=== PATIENT | male | born 1955 | race Caucasian/White ===

== ENCOUNTER 2017-02-23 09:23 | Inpatient (IN) | payer BC ==
[2017-02-23] MEDS ORDERED: Ondansetron INJ* 2 MG/ML VIAL IV PRN (12:31)
[2017-02-23] MEDS ORDERED: Morphine INJ* 2 MG/ML 1 ML SYRINGE (TWO MG - NEW SYRINGE VERSION) IV PRN (12:33)
[2017-02-23] MEDS ORDERED: Docusate CAP* 100 MG PO PRN (12:33)
--- NOTE | 2017-02-23 12:39 | HP ---
H&P (Free Text) History and Physical: H&P - Critical Care Reason for admission: pneumonia, hypoxic respiratory failure, transfer from [facility] Limitations in history/physical: none Date of admission: 02/23/2017 HPI: 61y M pmhx of HTN; comes to [facility] 02/18 for complaints of 1 week of chills, 3-4 days of cough, nonproductive, then associated with fever, nausea/vom. no abd pain. no palp/cp. no sick contacts. no diarrhea. Admitted to [facility] 02/18, found to have bilateral mulfifocal infiltrates, started on CAP tx with ceftriaxone and azithromycin, on NC 2L. Noted to have no ANMOL. Febrile+. Over the next few days, tmax 102.8 02/20, increasing hypoxia, req 4L NC , then 6L NC. today 02/23, hypoxic to 80s, fio2 increased to 10lpm form 6lpm. IV abx changed to levaquin. I was called for further management and possible transfer for worsening hypoxia. Advised change of Abx to cefepime/vanco iv. Currently patient in [facility] now, on NC 10lpm, sat 90%, rr18, HR 80-90s, BP 120s Speaks clearly, no distress, states he feels better today. no cp/sob/n/v/abd pain/ headache/palpitations. 1 episode of abd pain 2 days back. Noted history of Hunting trip 1 weeks prior to [place] admission, used insecticide spray on himself. no sick contacts at that time. no rash/tick bits/ joint pains/swellings afterward. ROS: negative except for positives mentioned above. PMHx: Hypertension PSHx: none Family History: Small cell Lung Ca in father, cancer unknown type in mother. Social History: Alcohol-none, Smoking-smoked 30 years 1-3ppd, stopped 15 yrs back, Drug use-no; Job-retired heatlh aid Allergies: NKDA Home Medications: metoprolol 50mg Tele: NSR Vitals: Vital Signs Temp 99.1 F 02/23/17 11:29 Pulse 94 02/23/17 13:15 Resp 22 02/23/17 13:15 BP 129/66 02/23/17 13:15 Pulse Ox 96 10/11/17 13:15 Intake & Output 02/22/17 02/23/17 02/23/17 18:59 06:59 18:59 Weight 173 lb 8.061 oz O2/Vent: 10lpm NC; changing to hiflow NC now. Infusions: heplock Current Medications: Albuterol/Ipratropium (Duoneb (Albuterol 2.5 Mg/Ipratropium 0.5 Mg)) 1 neb INH Q4H PRN PRN Reason: SOB/WHEEZING Docusate Sodium (Colace Cap*) 100 mg PO DAILY PRN PRN Reason: CONSTIPATION Enoxaparin Sodium (Lovenox(*)) 40 mg SUBCUT Q24H [facility] Famotidine (Pepcid Tab*) 20 mg PO BID [facility] Cefepime HCl 1 gm/ Sodium (Chloride) 50 mls @ 100 mls/hr IVPB Q12H [facility] Doxycycline Hyclate 100 mg/ (Sodium Chloride) 250 mls @ 250 mls/hr IVPB Q12H [facility] Metoprolol Tartrate (Lopressor Tab*) 50 mg PO Q12HR [facility] Morphine Sulfate (Morphine Inj (Syringe)*) 2 mg IV Q4H PRN PRN Reason: PAIN - MODERATE Ondansetron HCl (Zofran Inj*) 4 mg IV Q4H PRN PRN Reason: NAUSEA/VOMITING Physical Exam: General: awake, alert, no distress, no diaphoresis Head: normocephalic, atraumatic HEENT: no pallor, no icterus, moist mucous membranes Neck: soft, supple, no jvd, no stridor CVS: normal rate, normal rhythm, no murmur Resp: bilateral air entry, +rhales scattered on left and right, no wheeze, no rhonchi, no acc muscle use Abdomen: soft, nontender, nondistended, bowel sounds present Ext: pulses+, warm, no edema Skin: intact, no breakdown, no dryness Neuro: awake, alert, orientedx3, moving all extremities, no gross focal deficit Labs: pending in lab, to be reviewed; reviewed prior outside labs from today and previous days. Imaging: cxr 02/23 - bilateral multifocal infiltrates consistent with pneumonia, no ptx/ effusion Assessment: 61y M pmhx of HTN; admitted to [facility] 02/18 for chills, cough, nausea, found to have multifocal pneumonia. Developing increasing oxygen requirements over the past few days, transfered to [facility] for respiratory support. -Acute hypoxic respiratory failure, ARDS -Bilateral multilobar pneumonia, suspect CAP -Severe Sepsis Plan: Neuro- stable. delirium prec. CVS- hemodyn stable. BP okay. cont metoprolol. no pressors required at this time. good PO intake. will start mild IVF hydration. IV abx for pneumonia. appears euvolemic otherwise. making urine, quesada in place. Resp- cxr with bilateral infiltrates, unable to review CT with transfer pack, reports reviewed though. Change NC to hiflow NC. titrate fio2 to keep sat>92%. Sputum culture reviewed from [facility], 2+ gram pos cocci present, blood cx neg so far. Will keep IV cefepime (day#1), Vanco (day#1), add doxy for atypical coverage given recent wilderness outing, doxycycline 100mg q12h (day#1). Recent Ceftriaxone/azithro course (~5 days). Repeat Sputum cultures. ID- afebrile. wbc normal ~4. CXR with multifocal infitlrates. Sputum Gram+ cocci +. IV cefepime (day#1), Vanco (day#1), Doxy (day#1). Recent completed Ceftriaxone/Azitrho (5 days). Sputum cx repeat. GI- cardiac diet. Renal- Cr okay, making urine. K okay, no acidosis. No indication for quesada, discontinue quesada. Heme- hg stable, plt stable. noted thrombocytosis on admission, reactive? now to 500k. cont to monitor. Endo- send hga1c and tsh. noted slightly elevated BS before. Insulin as needed if BS>200, monitor for now. Musculsk- pressure ulcer proph. oob to chair as tolerated. DVT prophylaxis: lovenox sq GI prophylaxis: pepcid Central Line: no Arterial Line: no Quesada Cathetor: yes, discontinue today. Disposition: ICU for hypoxic respiratory failure and pneumonia Code Status: full code Total Critical Care time is 50 minutes, excluding procedures/teaching Nayan Palma MD Mine Production Engineer (Electronically Signed)
--- NOTE | 2017-02-23 12:54 | RAD ---
INDICATION: Pneumonia. COMPARISON: There are no prior studies available for comparison. TECHNIQUE: A portable view of the chest was obtained. FINDINGS: The heart is within normal limits in size. There are bilateral relatively dense infiltrates present in the upper and lower lobes. No pleural effusion is seen. IMPRESSION: BILATERAL INFILTRATES.
[2017-02-23] MEDS ORDERED: NS 0.9% 1000 ML* 1,000 ML IV SCH (13:30)
[2017-02-23 15:13] LABS: Hematocrit 30 % (42-52); Hemoglobin 10.3 g/dl (14.0-18.0); Mean Corpuscular HGB Conc 34 g/dl (31-36); Mean Corpuscular Hemoglobin 34 pg (27-31); Mean Corpuscular Volume 100 fL (80-94); Mean Platelet Volume 6 um3 (7.4-10.4); Red Blood Count 3.03 10^6/ul (4.0-5.4); Red Cell Distribution Width 14 % (10.5-15); White Blood Count 5.5 10^3/ul (3.5-10.8)
[2017-02-23 15:31] LABS: ALT 69 U/L (7-52); AST 33 U/L (13-39); Albumin 2.2 g/dL (3.2-5.2); Alkaline Phosphatase 157 U/L (34-104); Anion Gap 7 mmol/L (2-11); BUN/Creatinine Ratio 15.3 (8-20); Blood Urea Nitrogen 9 mg/dL (6-24); CO2 Carbon Dioxide 28 mmol/L (22-32); Calcium 7.8 mg/dL (8.6-10.3); Chloride 99 mmol/L (101-111); EGFR African American 179.6 (>60); EGFR Non-African American 139.7 (>60); Globulin 3.2 g/dL (2-4); Glucose 183 mg/dL (70-100); Potassium 3.7 mmol/L (3.5-5.0); Sodium 134 mmol/L (133-145); Total Protein 5.4 g/dL (6.4-8.9)
[2017-02-23 15:54] LABS: Vancomycin Random < 3.5 mcg/mL
[2017-02-23] MEDS ORDERED: Vancomycin(*) 1,000 MG in NS 0.9% 250 ML* 250 ML IVPB ONE (16:02)
[2017-02-23 16:11] LABS: TSH (Thyroid Stimulating Horm) 0.51 mcIU/mL (0.34-5.60)
[2017-02-23] MEDS: DOXYcycline IV* 100 MG in NS 0.9% 250 ML* 250 ML IVPB SCH (16:19)
[2017-02-23] MEDS: Enoxaparin(*) 40 MG/0.4 ML SYR SUBCUT SCH (16:26)
[2017-02-23 16:27] LABS: Urine Bacteria Absent (Absent); Urine Bilirubin Negative (Negative); Urine Glucose Negative (Negative); Urine Nitrite Negative (Negative)
[2017-02-23] MEDS ORDERED: Metoprolol Tartrate TAB* 50 mg PO SCH (21:00)
[2017-02-23] MEDS: Famotidine TAB* 20 MG PO SCH (21:04)
[2017-02-23] MEDS: Cefepime(*) 1 GM in NS 0.9% 50 ML* 50 ML IVPB SCH (21:04)
[2017-02-24] MEDS ORDERED: NS 0.9% 250 ML* 250 ML ONE (01:03)
[2017-02-24] MEDS: DOXYcycline IV* 100 MG in NS 0.9% 250 ML* 250 ML IVPB SCH ×2 (01:11→12:46)
[2017-02-24 06:23] LABS: Hematocrit 29 % (42-52); Mean Corpuscular HGB Conc 35 g/dl (31-36); Mean Corpuscular Hemoglobin 34 pg (27-31); Mean Corpuscular Volume 99 fL (80-94); Mean Platelet Volume 6 um3 (7.4-10.4); Red Cell Distribution Width 14 % (10.5-15); White Blood Count 5.6 10^3/ul (3.5-10.8)
[2017-02-24 06:36] LABS: BUN/Creatinine Ratio 15.8 (8-20); Calcium 7.8 mg/dL (8.6-10.3); EGFR African American 186.9 (>60); EGFR Non-African American 145.3 (>60); Potassium 3.8 mmol/L (3.5-5.0)
[2017-02-24] MEDS ORDERED: Pneumococcal *Vac Polyvalent 0.5 ML VIAL IM ONE (09:00)
[2017-02-24] MEDS ORDERED: Influenza VAC *QUAD* 2017-18* 0.5 ML SYRINGE IM ONE (09:00)
[2017-02-24] MEDS: Famotidine TAB* 20 MG PO SCH ×2 (09:46→20:42)
[2017-02-24] MEDS: Cefepime(*) 1 GM in NS 0.9% 50 ML* 50 ML IVPB SCH ×2 (09:46→20:42)
--- NOTE | 2017-02-24 11:12 | PN ---
Progress Note - Progress Note Date of Service: 02/24/17 Note: Progress Note - Critical Care 24 hour events: -on hiflow, no events overnight; in chair, no distress. -mild cough and sputum production -tmax 100.4 overnight only -BP stable -feels okay as per him. no cp/n/v/headache/abdpain/diarrhea. Tele: sinus tachy Vitals: Vital Signs Temp 98.9 F 02/24/17 07:49 Pulse 96 02/24/17 10:00 Resp 22 02/24/17 10:00 BP 113/71 02/24/17 10:00 Pulse Ox 95 02/24/17 10:00 Intake & Output 02/23/17 02/24/17 02/24/17 18:59 06:59 18:59 Intake Total 450 1700 300 Output Total 500 950 425 Balance -50 750 -125 Weight 173 lb 8.061 oz 173 lb 8.061 oz Intake: IV Fluids 227 NS (0.9%) 227 IVPB 873 ABX - DOXYCYCLINE 297 ABX - VANCOMYCIN 266 NS (0.9%) 310 Oral 450 600 300 Output: Urine 850 425 Quesada 500 Liquid Stool 100 Other: Estimated Void Medium # Bowel Movements 1 Estimated Stool Amount Small O2/Vent: hiflow 100% 20lpm now; sat 91%, rr 18-20 Infusions: ns 50cc/hr Current Medications: Albuterol/Ipratropium (Duoneb (Albuterol 2.5 Mg/Ipratropium 0.5 Mg)) 1 neb INH Q4H PRN PRN Reason: SOB/WHEEZING Docusate Sodium (Colace Cap*) 100 mg PO DAILY PRN PRN Reason: CONSTIPATION Enoxaparin Sodium (Lovenox(*)) 40 mg SUBCUT Q24H [facility] Last Admin: 02/23/17 16:26 Dose: 40 mg Famotidine (Pepcid Tab*) 20 mg PO BID [facility] Last Admin: 02/24/17 09:46 Dose: 20 mg Cefepime HCl 1 gm/ Sodium (Chloride) 50 mls @ 100 mls/hr IVPB Q12H [facility] Last Admin: 02/24/17 09:46 Dose: 100 mls/hr Doxycycline Hyclate 100 mg/ (Sodium Chloride) 250 mls @ 250 mls/hr IVPB Q12H [facility] Last Admin: 02/24/17 01:11 Dose: 250 mls/hr Sodium Chloride (Ns 0.9% 1000 Ml*) 1,000 mls @ 50 mls/hr IV .PER RATE [facility] Last Admin: 02/24/17 07:42 Dose: 50 mls/hr Metoprolol Tartrate (Lopressor Tab*) 50 mg PO DAILY@1200 [facility] Morphine Sulfate (Morphine Inj (Syringe)*) 2 mg IV Q4H PRN PRN Reason: PAIN - MODERATE Ondansetron HCl (Zofran Inj*) 4 mg IV Q4H PRN PRN Reason: NAUSEA/VOMITING Physical Exam: General: awake, alert, no distress, no diaphoresis Head: normocephalic, atraumatic HEENT: no pallor, no icterus, moist mucous membranes Neck: soft, supple, no jvd, no stridor CVS: normal rate, normal rhythm, no murmur Resp: bilateral air entry, +rhales scattered on left and right, no wheeze, no rhonchi, no acc muscle use Abdomen: soft, nontender, nondistended, bowel sounds present Ext: pulses+, warm, no edema Skin: intact, no breakdown, no dryness Neuro: awake, alert, orientedx3, moving all extremities, no gross focal deficit Labs: Laboratory Results - last 24 hr 02/23/17 02/23/17 02/23/17 14:56 14:56 14:56 WBC 5.5 RBC 3.03 L Hgb 10.3 L Hct 30 L MCV 100 H MCH 34 H MCHC 34 RDW 14 Plt Count 790 H MPV 6 L Neut % (Auto) Lymph % (Auto) [place] % (Auto) Eos % (Auto) Baso % (Auto) Absolute Neuts (auto) Absolute Lymphs (auto) Absolute Monos (auto) Absolute Eos (auto) Absolute Basos (auto) Absolute Nucleated RBC Nucleated RBC % INR (Anticoag Therapy) 1.40 H APTT 28.4 Sodium 134 Potassium 3.7 Chloride 99 L Carbon Dioxide 28 Anion Gap 7 BUN 9 Creatinine 0.59 L Est GFR ( Amer) 179.6 Est GFR (Non-Af Amer) 139.7 BUN/Creatinine Ratio 15.3 Glucose 183 H Hemoglobin A1c Calcium 7.8 L Total Bilirubin 0.80 AST 33 ALT 69 H Alkaline Phosphatase 157 H Total Protein 5.4 L Albumin 2.2 L Globulin 3.2 Albumin/Globulin Ratio 0.7 L TSH 0.51 Urine Color Urine Appearance Urine pH Ur Specific [place] Urine Protein Urine Ketones Urine Blood Urine Nitrate Urine Bilirubin Urine Urobilinogen Ur Leukocyte Esterase Urine WBC (Auto) Urine RBC (Auto) Urine Bacteria Urine Glucose Random Vancomycin < 3.5 02/23/17 02/23/17 02/24/17 14:56 15:59 06:00 WBC RBC Hgb Hct MCV MCH MCHC RDW Plt Count MPV Neut % (Auto) Lymph % (Auto) [place] % (Auto) Eos % (Auto) Baso % (Auto) Absolute Neuts (auto) Absolute Lymphs (auto) Absolute Monos (auto) Absolute Eos (auto) Absolute Basos (auto) Absolute Nucleated RBC Nucleated RBC % INR (Anticoag Therapy) APTT Sodium 135 Potassium 3.8 Chloride 102 Carbon Dioxide 27 Anion Gap 6 BUN 9 Creatinine 0.57 L Est GFR ( Amer) 186.9 Est GFR (Non-Af Amer) 145.3 BUN/Creatinine Ratio 15.8 Glucose 116 H Hemoglobin A1c 5.9 H Calcium 7.8 L Total Bilirubin AST ALT Alkaline Phosphatase Total Protein Albumin Globulin Albumin/Globulin Ratio TSH Urine Color Yellow Urine Appearance Clear Urine pH 7.0 Ur Specific [place] 1.009 L Urine Protein Negative Urine Ketones Negative Urine Blood 2+ H Urine Nitrate Negative Urine Bilirubin Negative Urine Urobilinogen Negative Ur Leukocyte Esterase Negative Urine WBC (Auto) 1+(6-10/hpf) H Urine RBC (Auto) 1+(3-5/hpf) H Urine Bacteria Absent Urine Glucose Negative Random Vancomycin 02/24/17 06:00 WBC 5.6 RBC 2.90 L Hgb 10.0 L Hct 29 L MCV 99 H MCH 34 H MCHC 35 RDW 14 Plt Count 682 H D MPV 6 L Neut % (Auto) 65.7 Lymph % (Auto) 32.6 [place] % (Auto) 0.5 L Eos % (Auto) 1.0 Baso % (Auto) 0.2 Absolute Neuts (auto) 3.7 Absolute Lymphs (auto) 1.8 Absolute Monos (auto) 0 Absolute Eos (auto) 0.1 Absolute Basos (auto) 0 Absolute Nucleated RBC 0 Nucleated RBC % 0 INR (Anticoag Therapy) APTT Sodium Potassium Chloride Carbon Dioxide Anion Gap BUN Creatinine Est GFR ( Amer) Est GFR (Non-Af Amer) BUN/Creatinine Ratio Glucose Hemoglobin A1c Calcium Total Bilirubin AST ALT Alkaline Phosphatase Total Protein Albumin Globulin Albumin/Globulin Ratio TSH Urine Color Urine Appearance Urine pH Ur Specific [place] Urine Protein Urine Ketones Urine Blood Urine Nitrate Urine Bilirubin Urine Urobilinogen Ur Leukocyte Esterase Urine WBC (Auto) Urine RBC (Auto) Urine Bacteria Urine Glucose Random Vancomycin Imaging: cxr 02/23 - bilateral multifocal infiltrates consistent with pneumonia, no ptx/ effusion Assessment: 61y M pmhx of HTN; admitted to [facility] 02/18 for chills, cough, nausea, found to have multifocal pneumonia. Developing increasing oxygen requirements over the past few days, transfered to [facility] ICU for respiratory support. -Acute hypoxic respiratory failure, ARDS -Bilateral multilobar pneumonia, suspect CAP -Severe Sepsis Plan: Neuro- stable. delirium prec. CVS- hemodyn stable. BP okay. change to metoprolol 50mg XL. no pressors required. cont NS 50cc/hour. IV abx for pneumonia. appears euvolemic otherwise. making urine, quesada in place. Resp- cxr with bilateral infiltrates. on hiflow 100% 20lpm, cont to titrate down , remains with sats 90%. sputum in process, gram pos cocci 1+ only now. need to obtain [place] sputum cultures. IV cefepime (day#2), Vanco (day#2), doxy for atypical coverage given recent wilderness outing, doxycycline 100mg q12h (day#2) . Recent Ceftriaxone/azithro course (~5 days). ID- afebrile. wbc normal ~4. CXR with multifocal infitlrates. Sputum Gram+ cocci +. IV cefepime (day#2), Vanco (day#2), Doxy (day#2). Recent completed Ceftriaxone/Azitrho (5 days). Sputum cx repeat. GI- cardiac diet. Renal- Cr okay, making urine. K okay, no acidosis. No indication for quesada, discontinue quesada. Heme- hg stable, anemia. plt stable. noted thrombocytosis on admission, reactive ? cont to monitor. Endo- hga1c 5.9. tsh noted. Insulin as needed if BS>200, monitor for now. Musculsk- pressure ulcer proph. oob to chair as tolerated. DVT prophylaxis: lovenox sq GI prophylaxis: pepcid Central Line: no Arterial Line: no Quesada Cathetor: no Disposition: ICU for hypoxic respiratory failure and pneumonia Code Status: full code Total Critical Care time is 30 minutes, excluding procedures/teaching Nayan Palma MD Director [employer] (Electronically Signed)
[2017-02-24] MEDS ORDERED: Metoprolol Tartrate TAB* 50 mg PO SCH (12:00)
[2017-02-24] MEDS ORDERED: Metoprolol Succinate XL TAB* 50 MG PO SCH (12:00)
[2017-02-24] MEDS: Enoxaparin(*) 40 MG/0.4 ML SYR SUBCUT SCH (12:46)
[2017-02-25] MEDS: DOXYcycline IV* 100 MG in NS 0.9% 250 ML* 250 ML IVPB SCH ×2 (01:02→13:28)
[2017-02-25 06:21] LABS: Hematocrit 29 % (42-52); Hemoglobin 9.9 g/dl (14.0-18.0); Mean Corpuscular HGB Conc 35 g/dl (31-36); Mean Corpuscular Hemoglobin 34 pg (27-31); Mean Corpuscular Volume 98 fL (80-94); Mean Platelet Volume 6 um3 (7.4-10.4); Red Blood Count 2.92 10^6/ul (4.0-5.4); Red Cell Distribution Width 14 % (10.5-15); White Blood Count 5.8 10^3/ul (3.5-10.8)
[2017-02-25 06:38] LABS: BUN/Creatinine Ratio 16.1 (8-20); Calcium 7.9 mg/dL (8.6-10.3); EGFR African American 190.8 (>60); EGFR Non-African American 148.3 (>60); Potassium 3.9 mmol/L (3.5-5.0)
--- NOTE | 2017-02-25 08:15 | RAD ---
Indication: Pneumonia. Single frontal view of the chest performed at 0633 hours was reviewed. Comparison is made with previous exam dated February 23, 2017. Persistent pneumonia in the right upper lobe, right lower lobe, left upper lobe and left base are noted. IMPRESSION: BILATERAL INFILTRATES AND PNEUMONIA UNCHANGED FROM FEBRUARY 23, 2017.
[2017-02-25] MEDS: Cefepime(*) 1 GM in NS 0.9% 50 ML* 50 ML IVPB SCH ×2 (09:02→22:18)
[2017-02-25] MEDS: Famotidine TAB* 20 MG PO SCH ×2 (09:02→20:56)
--- NOTE | 2017-02-25 10:47 | PN ---
Progress Note - Progress Note Date of Service: 02/25/17
--- NOTE | 2017-02-25 10:59 | PN ---
Progress Note - Progress Note Date of Service: 02/25/17 Note: Progress Note - Critical Care 24 hour events: -on hiflow 100% 30lpm; -cough and sputum production overnight, sent to lab -tmax 101.1 -BP stable -no cp/n/v/headache/abdpain. some mild intermittent loose stools not watery Tele: sinus tachy Vitals: Vital Signs Temp 98.4 F 02/25/17 07:32 Pulse 93 02/25/17 10:01 Resp 24 02/25/17 10:01 BP 114/64 02/25/17 10:01 Pulse Ox 95 02/25/17 10:01 Intake & Output 02/24/17 02/25/17 02/25/17 18:59 06:59 18:59 Intake Total 1789 1239 1360 Output Total 1025 1900 425 Balance 764 -661 935 Weight 173 lb 15.115 oz Intake: IV Fluids 159 NS (0.9%) 159 IVPB 250 389 NS (0.9%) 250 389 Oral 4605 676 1958 Output: Urine 1025 1900 425 Other: Estimated Void Medium Medium # Bowel Movements 1 Estimated Stool Amount Small Small O2/Vent: hiflow 100% 30lpm now; sat 93%, rr 18-20 Infusions: heplock Current Medications: Acetylcysteine (Mucomyst Inhalation Manuela*) 400 mg INH G7IX-NLAUT AWAKE PRN PRN Reason: CONGESTION Albuterol/Ipratropium (Duoneb (Albuterol 2.5 Mg/Ipratropium 0.5 Mg)) 1 neb INH Q4H PRN PRN Reason: SOB/WHEEZING Docusate Sodium (Colace Cap*) 100 mg PO DAILY PRN PRN Reason: CONSTIPATION Enoxaparin Sodium (Lovenox(*)) 40 mg SUBCUT Q24H [facility] Last Admin: 02/24/17 12:46 Dose: 40 mg Famotidine (Pepcid Tab*) 20 mg PO BID [facility] Last Admin: 02/25/17 09:02 Dose: 20 mg Cefepime HCl 1 gm/ Sodium (Chloride) 50 mls @ 100 mls/hr IVPB Q12H [facility] Last Admin: 02/25/17 09:02 Dose: 100 mls/hr Doxycycline Hyclate 100 mg/ (Sodium Chloride) 250 mls @ 250 mls/hr IVPB Q12H [facility] Last Admin: 02/25/17 01:02 Dose: 250 mls/hr Influenza Virus Vaccine (Fluarix *Quad* 2017-*) 0.5 ml IM .ONCE ONE Stop: 02/26/17 09:01 Metoprolol Succinate (Toprol Xl Tab*) 50 mg PO 1200 [facility] Morphine Sulfate (Morphine Inj (Syringe)*) 2 mg IV Q4H PRN PRN Reason: PAIN - MODERATE Ondansetron HCl (Zofran Inj*) 4 mg IV Q4H PRN PRN Reason: NAUSEA/VOMITING Pneumococcal Polyvalent Vaccine (Pneumococcal Vac 23-Polyvalent*) 0.5 ml IM .ONCE ONE Stop: 02/26/17 09:01 Physical Exam: General: awake, alert, no distress, no diaphoresis Head: normocephalic, atraumatic HEENT: no pallor, no icterus, moist mucous membranes Neck: soft, supple, no jvd, no stridor CVS: normal rate, normal rhythm, no murmur Resp: bilateral air entry, +rhales scattered on left and right, no wheeze, no rhonchi, no acc muscle use Abdomen: soft, nontender, nondistended, bowel sounds present Ext: pulses+, warm, no edema Skin: intact, no breakdown, no dryness Neuro: awake, alert, orientedx3, moving all extremities, no gross focal deficit Labs: Laboratory Results - last 24 hr 02/25/17 02/25/17 06:07 06:07 WBC 5.8 RBC 2.92 L Hgb 9.9 L Hct 29 L MCV 98 H MCH 34 H MCHC 35 RDW 14 Plt Count 682 H MPV 6 L Neut % (Auto) 62.9 Lymph % (Auto) 35.1 [place] % (Auto) 0.5 L Eos % (Auto) 1.2 Baso % (Auto) 0.3 Absolute Neuts (auto) 3.6 Absolute Lymphs (auto) 2.0 Absolute Monos (auto) 0 Absolute Eos (auto) 0.1 Absolute Basos (auto) 0 Absolute Nucleated RBC 0 Nucleated RBC % 0.1 Sodium 135 Potassium 3.9 Chloride 102 Carbon Dioxide 27 Anion Gap 6 BUN 9 Creatinine 0.56 L Est GFR ( Amer) 190.8 Est GFR (Non-Af Amer) 148.3 BUN/Creatinine Ratio 16.1 Glucose 114 H Calcium 7.9 L Imaging: cxr 02/23 - bilateral multifocal infiltrates consistent with pneumonia, no ptx/ effusion cxr 02/25 - unchanged multifocal infiltrates, maybe some improvement in MISHA and some worsening in RLL Assessment: 61y M pmhx of HTN; admitted to [facility] 02/18 for chills, cough, nausea, found to have multifocal pneumonia. Developing increasing oxygen requirements over the past few days, transfered to [facility] ICU for respiratory support. -Acute hypoxic respiratory failure, ARDS -Bilateral multilobar pneumonia, suspect CAP -Severe Sepsis Plan: Neuro- stable. delirium prec. CVS- hemodyn stable. BP okay. metoprolol 50mg XL. no pressors required. off ivf. IV abx for pneumonia. appears euvolemic otherwise. making urine Resp- cxr with bilateral infiltrates. on hiflow 100% 30lpm, chest PT with flutter valve. start mucomyst to loose secretions. cont to titrate down, remains with sats 90%. sputum in lab for culture. need to obtain ola sputum cultures. IV cefepime (day#3), Vanco (day#2) redose today, nongiven yesterday, doxy for atypical coverage given recent wilderness outing, doxycycline 100mg q12h (day#3). Recent Ceftriaxone/azithro course (~5 days). ID- tmax 101.1. wbc normal ~4. CXR with multifocal infitlrates. Sputum Gram+ cocci+ from ola and some growth here. IV cefepime (day#3), Vanco (day#2), Doxy (day#3). Recent completed Ceftriaxone/Azitrho (5 days). Sputum cx repeat. ID consulted today. GI- cardiac diet. Renal- Cr okay, making urine. K okay, no acidosis. No indication for quesada, discontinue quesada. Heme- hg stable, anemia. plt stable. noted thrombocytosis on admission, reactive ? cont to monitor. Endo- hga1c 5.9. tsh noted. Insulin as needed if BS>200, monitor for now. Musculsk- pressure ulcer proph. oob to chair as tolerated. DVT prophylaxis: lovenox sq GI prophylaxis: pepcid Central Line: no Arterial Line: no Quesada Cathetor: no Disposition: ICU for hypoxic respiratory failure and pneumonia Code Status: full code Total Critical Care time is 30 minutes, excluding procedures/teaching Nayan Palma MD Waste/Materials Exchange Specialist (Electronically Signed)
[2017-02-25] MEDS ORDERED: Vancomycin per Pharmacy* NOTE FOLLOW UP PRN (11:02)
[2017-02-25] MEDS: Albuterol/Ipratropium NEB.SOL* Albuterol 2.5 MG/Ipratropium 0.5 MG 3 ML INH PRN ×2 (11:52→16:26)
[2017-02-25] MEDS: Acetylcysteine INHALATION SOL* 200 MG/ML NEB.SOLN 10 ML INH PRN ×2 (11:52→16:27)
[2017-02-25] MEDS: Vancomycin(*) 1,000 MG in NS 0.9% 250 ML* 250 ML IVPB SCH ×2 (12:06→20:21)
[2017-02-25] MEDS: Metoprolol Succinate XL TAB* 50 MG PO SCH (13:27)
[2017-02-25] MEDS: Enoxaparin(*) 40 MG/0.4 ML SYR SUBCUT SCH (13:27)
--- NOTE | 2017-02-25 16:11 | CONS ---
CONSULTATION REPORT: DATE OF CONSULT: 02/25/17 REQUESTING PHYSICIAN: Dr. Palma. CONSULTING SERVICE: Infectious Disease. REASON FOR CONSULT: Pneumonia. IMPRESSION: Multifocal bilateral infiltrates on his chest x-ray, sputum samples from [facility] where he presented a week ago showed gram- positive cocci and yeast. Cultures growing yeast and normal nate. I do not think oralia is a pathogen here. His HIV test was negative, so cryptococcus is unlikely, he has no other immuno-compromising conditions or medications that we know of. Another sample here is showing gram-positive cocci. The culture is pending. He had worsening hypoxia despite a week of CAP coverage as Dr. Palma has noted it could be methicillin-resistant Staphylococcus aureus. Could have an intermittent pneumococcus or this could be inflammatory response related to the infection. He had a legionella antigen that was negative and an influenza PCR was negative as well. RECOMMENDATIONS: Agree with vancomycin goal trough 10 to 15, cefepime 1 g q. 12 h, and doxycycline 100 mg every 12 hours. His HIV antibody was negative as was his legionella, which we need to check as well as influenza PCR results. We will also await a sputum culture. If needed, there is not a contraindications for corticosteroids. HISTORY OF PRESENT ILLNESS: This 61-year-old man was admitted to [facility] a week ago and then transferred here yesterday. He presented to [facility] with fever, cough, shortness of breath and shortness of breath become quite impressive with exertion, so he was admitted to [facility], started on ceftriaxone and azithromycin. He did have bilateral infiltrates seen on chest films. At that time too his HIV antibody was negative as well as a legionella urine antigen. Because of worsening hypoxia, he was transferred here yesterday. Chest x-ray showed bilateral infiltrates he was febrile to 38.4 overnight. He has had blood and sputum culture send. He is on high flow oxygen 30 L/minute up from 20 L yesterday. He is comfortable, denies shortness of breath at rest or moving to the bathroom. He has occasional cough, productive of sputum. There is no blood in the sputum. PAST MEDICAL HISTORY: Hypertension. MEDICATIONS: 1. Acetylcysteine. 2. Doxycycline 100 mg every 12 hours. 3. Famotidine. 4. Enoxaparin. 5. Cefepime 1 g every 12 hours. 6. Metoprolol. 7. Vancomycin 1 g IV every 8 hours. ALLERGIES: No known drug allergies. FAMILY HISTORY: No tuberculosis. Father had small cell cancer of the lung. Parents are . SOCIAL HISTORY: He lives in [place]. He is retired, spends a lot of time outdoors hunting and working on the garden. They have a pet cat. His is at home, not sick. REVIEW OF SYSTEMS: A 14-point review of systems was negative except as noted above. PHYSICAL EXAM: Vital Signs: Temperature is 36.7, heart rate 96, respiratory rate 20, blood pressure 109/68, O2 sat 100%, FiO2 of 100% flow of 30 L/minute. General: He is awake, not in distress. Neurologic: He is oriented x3. Neurologic: He moves all of his extremities. Sensation is intact to light touch in upper and lower extremities bilaterally. Neck: Supple. HEENT: There is no conjunctival hemorrhage. Oropharynx without lesions. Heart: Regular and tachycardic without murmurs. Lungs: There are rales at the left base. There is no wheeze or rhonchi. Abdomen: Soft, nontender, and nondistended. There is bowel sounds present. Skin: There is no rashes or splinter hemorrhages. Musculoskeletal: No spine tenderness to palpation or joint synovitis. DIAGNOSTIC STUDIES/LAB DATA: White blood cell count 5.8, hemoglobin 9.9, platelets 682, MCV 98. Creatinine 0.5. ALT was 70. Urinalysis showed blood. Please see impressions and recommendations outlined above, which I have discussed with Dr. Palma. Thank you for asking me to see Mr. Cowan in consultation. [id number]/[facility] #: [id number] [facility] CENTERJoselyn
[2017-02-26] MEDS: Vancomycin(*) 1,000 MG in NS 0.9% 250 ML* 250 ML IVPB SCH ×2 (04:07→12:26)
[2017-02-26] MEDS: Albuterol/Ipratropium NEB.SOL* Albuterol 2.5 MG/Ipratropium 0.5 MG 3 ML INH PRN (04:28)
[2017-02-26 05:53] LABS: Hematocrit 28 % (42-52); Hemoglobin 9.8 g/dl (14.0-18.0); Mean Corpuscular HGB Conc 35 g/dl (31-36); Mean Corpuscular Hemoglobin 35 pg (27-31); Mean Corpuscular Volume 98 fL (80-94); Mean Platelet Volume 6 um3 (7.4-10.4); Red Blood Count 2.83 10^6/ul (4.0-5.4); Red Cell Distribution Width 13 % (10.5-15); White Blood Count 5.9 10^3/ul (3.5-10.8)
[2017-02-26] MEDS: DOXYcycline CAP(*) 100 MG PO SCH ×2 (05:54→18:03)
[2017-02-26 06:12] LABS: BUN/Creatinine Ratio 13.3 (8-20); Calcium 7.7 mg/dL (8.6-10.3); EGFR African American 176.2 (>60); Potassium 3.7 mmol/L (3.5-5.0)
--- NOTE | 2017-02-26 08:07 | RAD ---
INDICATION: Pneumonia. COMPARISON: Comparison is made with a prior chest x-ray study from February 25, 2017. TECHNIQUE: A portable view of the chest was obtained. FINDINGS: The heart is within normal limits in size. There are bilateral relatively dense infiltrates in the upper and lower lung mercer demonstrating interval progression from the prior study. No pleural effusion is seen. IMPRESSION: BILATERAL INFILTRATES DEMONSTRATING INTERVAL PROGRESSION.
[2017-02-26] MEDS: Cefepime(*) 1 GM in NS 0.9% 50 ML* 50 ML IVPB SCH ×2 (08:34→21:07)
[2017-02-26] MEDS: Famotidine TAB* 20 MG PO SCH ×2 (08:48→21:08)
[2017-02-26] MEDS ORDERED: Influenza VAC *QUAD* 2017-18* 0.5 ML SYRINGE IM ONE (09:00)
[2017-02-26] MEDS ORDERED: Pneumococcal *Vac Polyvalent 0.5 ML VIAL IM ONE (09:00)
--- NOTE | 2017-02-26 10:19 | PN ---
Progress Note - Progress Note Date of Service: 02/26/17 Note: Progress Note - Critical Care 24 hour events: -on hiflow 100% 20lpm; -cough and sputum production overnight, sent to lab -afebrile -BP stable -no cp/n/v/headache/abdpain. Tele: sinus tachy Vitals: Vital Signs Temp 98.5 F 02/26/17 07:27 Pulse 95 02/26/17 10:00 Resp 23 02/26/17 10:00 BP 129/61 02/26/17 09:01 Pulse Ox 92 02/26/17 10:00 Intake & Output 02/25/17 02/26/17 02/26/17 18:59 06:59 18:59 Intake Total 3050 1484 1030 Output Total 1025 1800 650 Balance 2024 - 380 Weight 174 lb 2.643 oz Intake: IV Fluids 510 116 ABX - DOXYCYCLINE 250 ABX - VANCOMYCIN 250 116 NS (0.9%) 10 IVPB 528 ABX - VANCOMYCIN 528 Oral 2540 840 1030 Output: Urine 1025 1800 650 Other: Estimated Void Medium Estimated Stool Amount Small # Voids 3 O2/Vent: hiflow 100% 20lpm now; sat 92%, rr 18-20 Infusions: heplock Current Medications: Acetylcysteine (Mucomyst Inhalation Manuela*) 400 mg INH [id number] AWAKE PRN PRN Reason: CONGESTION Last Admin: 02/25/17 16:27 Dose: 400 mg Albuterol/Ipratropium (Duoneb (Albuterol 2.5 Mg/Ipratropium 0.5 Mg)) 1 neb INH Q4H PRN PRN Reason: SOB/WHEEZING Last Admin: 02/26/17 04:28 Dose: 1 neb Docusate Sodium (Colace Cap*) 100 mg PO DAILY PRN PRN Reason: CONSTIPATION Doxycycline Hyclate (Vibramycin Cap(*)) 100 mg PO 0600,1800 [facility] Last Admin: 02/26/17 05:54 Dose: 100 mg Enoxaparin Sodium (Lovenox(*)) 40 mg SUBCUT Q24H [facility] Last Admin: 02/25/17 13:27 Dose: 40 mg Famotidine (Pepcid Tab*) 20 mg PO BID [facility] Last Admin: 02/26/17 08:48 Dose: 20 mg Cefepime HCl 1 gm/ Sodium (Chloride) 50 mls @ 100 mls/hr IVPB Q12H [facility] Last Admin: 02/26/17 08:34 Dose: 100 mls/hr Vancomycin HCl 1,000 mg/ (Sodium Chloride) 250 mls @ 166.667 mls/hr IVPB Q8H [facility] Last Admin: 02/26/17 04:07 Dose: 166.667 mls/hr Methylprednisolone Sodium Succinate (Solu-Medrol 40 Mg) 60 mg IV Q12H [facility] Metoprolol Succinate (Toprol Xl Tab*) 50 mg PO 1200 [facility] Last Admin: 02/25/17 13:27 Dose: 50 mg Morphine Sulfate (Morphine Inj (Syringe)*) 2 mg IV Q4H PRN PRN Reason: PAIN - MODERATE Ondansetron HCl (Zofran Inj*) 4 mg IV Q4H PRN PRN Reason: NAUSEA/VOMITING Pharmacy Consult (Vancomycin Per Pharmacy*) 1 note FOLLOW UP . PRN PRN Reason: PER PROTOCOL Physical Exam: General: awake, alert, no distress, no diaphoresis Head: normocephalic, atraumatic HEENT: no pallor, no icterus, moist mucous membranes Neck: soft, supple, no jvd, no stridor CVS: normal rate, normal rhythm, no murmur Resp: bilateral air entry, +rhales scattered on left and right, no wheeze, no rhonchi, no acc muscle use Abdomen: soft, nontender, nondistended, bowel sounds present Ext: pulses+, warm, no edema Skin: intact, no breakdown, no dryness Neuro: awake, alert, orientedx3, moving all extremities, no gross focal deficit Labs: Laboratory Results - last 24 hr 02/26/17 02/26/17 05:30 05:30 WBC 5.9 RBC 2.83 L Hgb 9.8 L Hct 28 L MCV 98 H MCH 35 H MCHC 35 RDW 13 Plt Count 629 H D MPV 6 L Neut % (Auto) 59.9 Lymph % (Auto) 38.4 [place] % (Auto) 0.5 L Eos % (Auto) 0.9 Baso % (Auto) 0.3 Absolute Neuts (auto) 3.5 Absolute Lymphs (auto) 2.3 Absolute Monos (auto) 0 Absolute Eos (auto) 0.1 Absolute Basos (auto) 0 Absolute Nucleated RBC 0 Nucleated RBC % 0 Sodium 133 Potassium 3.7 Chloride 101 Carbon Dioxide 27 Anion Gap 5 BUN 8 Creatinine 0.60 L Est GFR ( Amer) 176.2 Est GFR (Non-Af Amer) 137.0 BUN/Creatinine Ratio 13.3 Glucose 117 H Calcium 7.7 L Imaging: cxr 02/23 - bilateral multifocal infiltrates consistent with pneumonia, no ptx/ effusion cxr 02/25 - unchanged multifocal infiltrates, maybe some improvement in MISHA and some worsening in RLL cxr 02/26 - mild progression in infiltrates Assessment: 61y M pmhx of HTN; admitted to [facility] 02/18 for chills, cough, nausea, found to have multifocal pneumonia. Developing increasing oxygen requirements over the past few days, transfered to [place] ICU for respiratory support. -Acute hypoxic respiratory failure, ARDS -Bilateral multilobar pneumonia, suspect CAP ? vs interstitial pneumonitis -Severe Sepsis Plan: Neuro- stable. delirium prec. CVS- hemodyn stable. BP okay. metoprolol 50mg XL. no pressors required. off ivf. IV abx for pneumonia. appears euvolemic otherwise. making urine Resp- cxr with bilateral infiltrates. on hiflow 100% 20lpm, chest PT with flutter valve. no change in status so far despite broadened Abx coverage, sputum cx still only yeast. No other growth noted. Cont Abx, IV cefepime (day#4) , Vanco (day#3), doxy for atypical coverage given recent wilderness outing, doxycycline 100mg q12h (day#4). Will start Solumedrol 60mg IV BID for pneumonitis. mucomyst prn. Ceftriaxone/azithro course (~5 days) completed at [place]. ID- afebrile. wbc normal ~4. CXR with multifocal infitlrates with mild progression. Sputum Gram+ cocci 1+ and yeast. Cont IV cefepime (day#4), Vanco ( day#3), Doxy (day#4). Started Solumedrol for pneumonitis. Recent completed Ceftriaxone/Azitrho (5 days). ID consult appreciated. GI- cardiac diet. Renal- Cr okay, making urine. K okay, no acidosis. No indication for quesada, discontinue quesada. Heme- hg stable, anemia. plt stable. noted thrombocytosis on admission, reactive ? cont to monitor. Endo- hga1c 5.9. tsh noted. Insulin as needed if BS>200, monitor for now. Musculsk- pressure ulcer proph. oob to chair as tolerated. DVT prophylaxis: lovenox sq GI prophylaxis: pepcid Central Line: no Arterial Line: no Quesada Cathetor: no Disposition: ICU for hypoxic respiratory failure and pneumonia suspected Code Status: full code Total Critical Care time is 30 minutes, excluding procedures/teaching Nayan Palma MD Maintenance Machinist (Electronically Signed)
[2017-02-26] MEDS: methylPREDNISolone 125 MG* 2 ML VIAL IV SCH ×2 (11:18→21:08)
[2017-02-26] MEDS: Metoprolol Succinate XL TAB* 50 MG PO SCH (13:25)
[2017-02-26] MEDS: Enoxaparin(*) 40 MG/0.4 ML SYR SUBCUT SCH (14:35)
[2017-02-26] MEDS ORDERED: Vancomycin Trough Check NOTE FOLLOW UP ONE (19:30)
[2017-02-26] MEDS: Vancomycin(*) 1,250 MG IV IVPB SCH ×2 (21:59)
[2017-02-27] MEDS ORDERED: NS 0.9% 250 ML* 250 ML ONE ×3 (05:40→21:35)
[2017-02-27] MEDS: Vancomycin(*) 1,250 MG IV IVPB SCH ×6 (05:50→21:52)
[2017-02-27] MEDS: DOXYcycline CAP(*) 100 MG PO SCH ×2 (05:50→17:45)
[2017-02-27 06:16] LABS: Hematocrit 30 % (42-52); Hemoglobin 10.5 g/dl (14.0-18.0); Mean Corpuscular HGB Conc 35 g/dl (31-36); Mean Corpuscular Hemoglobin 34 pg (27-31); Mean Corpuscular Volume 98 fL (80-94); Mean Platelet Volume 6 um3 (7.4-10.4); Red Blood Count 3.07 10^6/ul (4.0-5.4); Red Cell Distribution Width 14 % (10.5-15); White Blood Count 8.9 10^3/ul (3.5-10.8)
[2017-02-27 06:27] LABS: BUN/Creatinine Ratio 24.1 (8-20); Calcium 8.4 mg/dL (8.6-10.3); EGFR African American 183.2 (>60); EGFR Non-African American 142.4 (>60); Potassium 4.1 mmol/L (3.5-5.0)
[2017-02-27] MEDS: Vancomycin(*) 1,000 MG in NS 0.9% 250 ML* 250 ML IVPB SCH (07:36)
[2017-02-27] MEDS ORDERED: NS 0.9% 50 ML* 50 ML ONE ×2 (08:27→21:35)
[2017-02-27] MEDS: Cefepime(*) 1 GM in NS 0.9% 50 ML* 50 ML IVPB SCH ×2 (08:34→21:53)
[2017-02-27] MEDS: Famotidine TAB* 20 MG PO SCH ×2 (08:34→21:52)
[2017-02-27] MEDS ORDERED: Acetylcysteine INHALATION SOL* 200 MG/ML NEB.SOLN 10 ML INH PRN (10:39)
--- NOTE | 2017-02-27 10:39 | PN ---
Progress Note - Progress Note Date of Service: 02/27/17 Note: Progress Note - Critical Care 24 hour events: -on hiflow 100% 20lpm; -cough and sputum production overnight at times, has fits of coughing -afebrile -BP stable -no cp/n/v/headache/abdpain. Tele: sinus tachy Vitals: Vital Signs Temp 98.0 F 02/27/17 07:41 Pulse 82 02/27/17 10:00 Resp 20 02/27/17 10:34 BP 105/57 02/27/17 10:00 Pulse Ox 94 02/27/17 10:00 Intake & Output 02/26/17 02/27/17 02/27/17 18:59 06:59 18:59 Intake Total 3900 1272 590 Output Total 1450 1515 Balance 2450 -243 590 Weight 175 lb 4.28 oz Intake: IV Fluids 60 472 ABX - VANCOMYCIN 346 NS (0.9%) 60 126 IVPB 340 NS (0.9%) 340 Oral 3500 800 590 Output: Urine 1450 1515 O2/Vent: hiflow 100% 20lpm now; sat 94-96%, rr 18-20 Infusions: heplock Current Medications: Acetylcysteine (Mucomyst Inhalation Manuela*) 400 mg INH [id number] AWAKE PRN PRN Reason: CONGESTION Last Admin: 02/25/17 16:27 Dose: 400 mg Albuterol/Ipratropium (Duoneb (Albuterol 2.5 Mg/Ipratropium 0.5 Mg)) 1 neb INH Q4H PRN PRN Reason: SOB/WHEEZING Last Admin: 02/26/17 04:28 Dose: 1 neb Docusate Sodium (Colace Cap*) 100 mg PO DAILY PRN PRN Reason: CONSTIPATION Doxycycline Hyclate (Vibramycin Cap(*)) 100 mg PO 0600,1800 [facility] Last Admin: 02/27/17 05:50 Dose: 100 mg Enoxaparin Sodium (Lovenox(*)) 40 mg SUBCUT Q24H [facility] Last Admin: 02/26/17 14:35 Dose: 40 mg Famotidine (Pepcid Tab*) 20 mg PO BID [facility] Last Admin: 02/27/17 08:34 Dose: 20 mg Cefepime HCl 1 gm/ Sodium (Chloride) 50 mls @ 100 mls/hr IVPB Q12H [facility] Last Admin: 02/27/17 08:34 Dose: 100 mls/hr Vancomycin HCl 1,250 mg/ (Sodium Chloride) 250 mls @ 166.667 mls/hr IVPB Q8H [facility] Last Admin: 02/27/17 05:50 Dose: 166.667 mls/hr Methylprednisolone Sodium Succinate (Solu-Medrol 125mg *) 60 mg IV Q12H [facility] Last Admin: 02/26/17 21:08 Dose: 60 mg Metoprolol Succinate (Toprol Xl Tab*) 50 mg PO 1200 [facility] Last Admin: 02/26/17 13:25 Dose: 50 mg Morphine Sulfate (Morphine Inj (Syringe)*) 2 mg IV Q4H PRN PRN Reason: PAIN - MODERATE Ondansetron HCl (Zofran Inj*) 4 mg IV Q4H PRN PRN Reason: NAUSEA/VOMITING Pharmacy Consult (Vancomycin Per Pharmacy*) 1 note FOLLOW UP . PRN PRN Reason: PER PROTOCOL Pharmacy Profile Note (Vancomycin Trough Check) 1 note FOLLOW UP 0430 ONE Stop: 02/28/17 04:31 Physical Exam: General: awake, alert, no distress, no diaphoresis Head: normocephalic, atraumatic HEENT: no pallor, no icterus, moist mucous membranes Neck: soft, supple, no jvd, no stridor CVS: normal rate, normal rhythm, no murmur Resp: bilateral air entry, +rhales scattered on left and right, no wheeze, no rhonchi, no acc muscle use Abdomen: soft, nontender, nondistended, bowel sounds present Ext: pulses+, warm, no edema Skin: intact, no breakdown, no dryness Neuro: awake, alert, orientedx3, moving all extremities, no gross focal deficit Labs: Laboratory Results - last 24 hr 02/26/17 02/27/17 02/27/17 19:50 06:02 06:02 WBC 8.9 RBC 3.07 L Hgb 10.5 L Hct 30 L MCV 98 H MCH 34 H MCHC 35 RDW 14 Plt Count 711 H D MPV 6 L Neut % (Auto) 53.2 Lymph % (Auto) 45.6 [place] % (Auto) 0.5 L Eos % (Auto) 0 Baso % (Auto) 0.7 Absolute Neuts (auto) 4.7 Absolute Lymphs (auto) 4.0 Absolute Monos (auto) 0 Absolute Eos (auto) 0 Absolute Basos (auto) 0.1 Absolute Nucleated RBC 0 Nucleated RBC % 0 Sodium 136 Potassium 4.1 Chloride 103 Carbon Dioxide 26 Anion Gap 7 BUN 14 Creatinine 0.58 L Est GFR ( Amer) 183.2 Est GFR (Non-Af Amer) 142.4 BUN/Creatinine Ratio 24.1 H Glucose 176 H Calcium 8.4 L Vancomycin Trough 8.1 Imaging: cxr 02/23 - bilateral multifocal infiltrates consistent with pneumonia, no ptx/ effusion cxr 02/25 - unchanged multifocal infiltrates, maybe some improvement in MISHA and some worsening in RLL cxr 02/26 - mild progression in infiltrates Assessment: 61y M pmhx of HTN; admitted to [facility] 02/18 for chills, cough, nausea, found to have multifocal pneumonia. Developing increasing oxygen requirements over the past few days, transfered to [place] ICU for respiratory support. -Acute hypoxic respiratory failure, ARDS -Bilateral multilobar pneumonia, suspect CAP ? vs interstitial pneumonitis -Severe Sepsis Plan: Neuro- stable. delirium prec. CVS- hemodyn stable. BP okay. metoprolol 50mg XL. no pressors required. IV abx for pneumonia? appears euvolemic otherwise. making urine Resp- cxr with bilateral infiltrates. on hiflow 100% 20lpm, chest PT with flutter valve. no change in status so far despite broadened Abx coverage, sputum cx still only yeast. started on solumedrol 60mg iv q12h for suspected interstitial/chemical pneumonitis, unclear cause. No other growth noted. Cont Abx, IV cefepime (day#5), Vanco (day#4), doxy for atypical coverage given recent wilderness outing, doxycycline 100mg q12h (day#5). Ceftriaxone/azithro course (~5 days) completed at [place]. If no change, likely we shoudl discontinue abx tomorrow, no growth, no bacteria to target. ID- afebrile. wbc normal. CXR with multifocal infitlrates with mild progression. Sputum Gram+ cocci 1+ and yeast. Cont IV cefepime (day#5), Vanco ( day#4), Doxy (day#5). Started Solumedrol for pneumonitis. Recent completed Ceftriaxone/Azitrho (5 days). ID consult appreciated. GI- cardiac diet. Renal- Cr okay, making urine. K okay, no acidosis. No indication for quesada, discontinue quesada. Heme- hg stable, anemia. plt stable. noted thrombocytosis on admission, reactive ? cont to monitor. Endo- hga1c 5.9. tsh noted. Insulin as needed if BS>200, monitor for now. Musculsk- pressure ulcer proph. oob to chair as tolerated. DVT prophylaxis: lovenox sq GI prophylaxis: pepcid Central Line: no Arterial Line: no Quesada Cathetor: no Disposition: ICU for hypoxic respiratory failure and pneumonia suspected Code Status: full code Total Critical Care time is 30 minutes, excluding procedures/teaching Nayan Palma MD Letter Of Credit Clerk (Electronically Signed)
[2017-02-27] MEDS: methylPREDNISolone 125 MG* 2 ML VIAL IV SCH (12:03)
[2017-02-27] MEDS: Enoxaparin(*) 40 MG/0.4 ML SYR SUBCUT SCH (12:07)
[2017-02-27] MEDS: Metoprolol Succinate XL TAB* 50 MG PO SCH (13:48)
[2017-02-28] MEDS: methylPREDNISolone 125 MG* 2 ML VIAL IV SCH ×3 (00:56→22:54)
[2017-02-28] MEDS ORDERED: Vancomycin Trough Check NOTE FOLLOW UP ONE (04:30)
[2017-02-28 04:55] LABS: Hematocrit 27 % (42-52); Hemoglobin 9.4 g/dl (14.0-18.0); Mean Corpuscular HGB Conc 34 g/dl (31-36); Mean Corpuscular Hemoglobin 34 pg (27-31); Mean Corpuscular Volume 98 fL (80-94); Mean Platelet Volume 6 um3 (7.4-10.4); Red Blood Count 2.81 10^6/ul (4.0-5.4); Red Cell Distribution Width 14 % (10.5-15); White Blood Count 9.7 10^3/ul (3.5-10.8)
[2017-02-28 05:09] LABS: BUN/Creatinine Ratio 28.2 (8-20); EGFR African American 145.1 (>60); EGFR Non-African American 112.8 (>60)
[2017-02-28] MEDS: DOXYcycline CAP(*) 100 MG PO SCH ×2 (06:00→17:48)
[2017-02-28] MEDS: Vancomycin(*) 1,250 MG IV IVPB SCH ×6 (06:00→22:52)
[2017-02-28] MEDS: Famotidine TAB* 20 MG PO SCH ×2 (08:38→21:39)
[2017-02-28] MEDS: Cefepime(*) 1 GM in NS 0.9% 50 ML* 50 ML IVPB SCH ×2 (08:38→20:28)
--- NOTE | 2017-02-28 11:58 | PN ---
Progress Note - Progress Note Date of Service: 02/28/17 Note: CRITICAL CARE MEDICINE Date: 02/28/17 Time: 900 SUBJECTIVE: Patient seen and examined. at bedside. PHYSICAL EXAM: Vital Signs: Reviewed. 15lpm Neurologic: communicating well. no distress HEENT: pupils equal. Sclera anicteric. Trachea midline. Cardiovascular: S1 S2 Respiratory: distnat but clear Abdomen: Soft, nt. No r/g/r. Extremities: Warm. LABS: Reviewed. IMAGING: Reviewed. MEDICATIONS: Reviewed. ASSESSMENT: 61 M Acute hypoxic resp failure ARDS - ? nonifectious and more AIP Tx for severe sepsis PLAN: Neurologic: stable. Cardiovascular: perusing well. vol ok. Respiratory: tolerating clinically. hopefully cxr just lagging and can repeat tomorrow for f/u. fungal could still be but would be unlikely. if cxr not improving but continues clinical improvement can consider bronch. Gastrointestinal: po. sup Renal/Metabolic: stable. Infectious Disease: on vanco/cefepime and doxy for course. Hematology: stable Endocrine: steroids for aip continued. slow taper to prednisone starting tomorrow. Musculoskeletal: oob. ambulate. Psych/Social: they expressed understanding of plans Supportive and preventative care as ordered. SUP: po and on H2 VTE prophylaxis: lovenox Disposition: ICU today and potential floor tomorrow Code Status: Full Critical Care Time: 30min Kristine Crawford DO
[2017-02-28] MEDS: Enoxaparin(*) 40 MG/0.4 ML SYR SUBCUT SCH (13:05)
[2017-02-28] MEDS: Metoprolol Succinate XL TAB* 50 MG PO SCH (13:06)
--- NOTE | 2017-02-28 13:09 | PN ---
Progress Note - Progress Note Date of Service: 02/28/17 SOAP: Subjective: CC: pneumonia HPI: 61 year old man transferred from with resp failure and pneumonia; had 5 days ctx/azithro there. Decreasing O2 requirement and cough improved. Walking around unit without desaturating w supplemental O2. Objective: [] Vital Signs Temp 36.4 C 02/28/17 12:00 Pulse 59 02/28/17 12:00 Resp 18 02/28/17 12:00 BP 128/58 02/28/17 10:01 Pulse Ox 97 02/28/17 12:00 Intake & Output 02/27/17 02/28/17 02/28/17 18:59 06:59 18:59 Intake Total 1650 1462 560 Output Total 1300 1725 650 Balance 350 -263 -90 Weight 178 lb 12.718 oz Intake: IV Fluids 752 ABX - VANCOMYCIN 579 NS (0.9%) 173 IVPB 250 60 ABX - VANCOMYCIN 250 NS (0.9%) 60 Oral 1400 650 560 Output: Urine 1300 1725 650 Other: Estimated Void Small # Bowel Movements 1 Estimated Stool Amount Medium Gen:awake Ox3 HEENT:PERRL, MMM Heart:RRR no murmur Lungs:CTA BL Abd:+BS NTND soft Skin: no rash Laboratory Results - last 24 hr 02/28/17 02/28/17 02/28/17 04:44 04:44 04:44 WBC 9.7 RBC 2.81 L Hgb 9.4 L Hct 27 L MCV 98 H MCH 34 H MCHC 34 RDW 14 Plt Count 610 H D MPV 6 L Neut % (Auto) 52.4 Lymph % (Auto) 46.9 [place] % (Auto) 0.6 L Eos % (Auto) 0 Baso % (Auto) 0.1 Absolute Neuts (auto) 5.1 Absolute Lymphs (auto) 4.5 Absolute Monos (auto) 0.1 Absolute Eos (auto) 0 Absolute Basos (auto) 0 Absolute Nucleated RBC 0 Nucleated RBC % 0 Sodium 138 Potassium 4.0 Chloride 104 Carbon Dioxide 29 Anion Gap 5 BUN 20 Creatinine 0.71 Est GFR ( Amer) 145.1 Est GFR (Non-Af Amer) 112.8 BUN/Creatinine Ratio 28.2 H Glucose 172 H Calcium 8.0 L Vancomycin Trough 17.3 Assessment: 1. Pneumonia; CAP including viral on the differential 2. Acute hypoxemic resp failure, present on admission; post infectious inflammatory response to infectious agent Plan: 1. day 6/7 of vancomycin/cefepime/doxycycline 2. corticosteroids per primary team
[2017-03-01] MEDS: Vancomycin(*) 1,250 MG IV IVPB SCH ×4 (05:17→13:39)
[2017-03-01 05:47] LABS: Hematocrit 28 % (42-52); Hemoglobin 9.3 g/dl (14.0-18.0); Mean Corpuscular HGB Conc 34 g/dl (31-36); Mean Corpuscular Hemoglobin 33 pg (27-31); Mean Corpuscular Volume 98 fL (80-94); Mean Platelet Volume 6 um3 (7.4-10.4); Red Cell Distribution Width 14 % (10.5-15); White Blood Count 9.1 10^3/ul (3.5-10.8)
[2017-03-01 06:00] LABS: BUN/Creatinine Ratio 30.2 (8-20); Calcium 7.9 mg/dL (8.6-10.3); EGFR African American 166.5 (>60); EGFR Non-African American 129.5 (>60); Potassium 4.4 mmol/L (3.5-5.0)
[2017-03-01] MEDS: DOXYcycline CAP(*) 100 MG PO SCH ×2 (07:23→17:54)
[2017-03-01] MEDS: Cefepime(*) 1 GM in NS 0.9% 50 ML* 50 ML IVPB SCH ×2 (09:10→21:07)
[2017-03-01] MEDS: Famotidine TAB* 20 MG PO SCH (09:10)
[2017-03-01] MEDS: methylPREDNISolone 125 MG* 2 ML VIAL IV SCH (11:34)
--- NOTE | 2017-03-01 12:58 | PN ---
Progress Note - Progress Note Date of Service: 03/01/17 Note: CRITICAL CARE MEDICINE Date: 03/01/17 Time: 900 SUBJECTIVE: Patient seen and examined. at bedside. PHYSICAL EXAM: Vital Signs: Reviewed. 5lpm Neurologic: communicating well. no distress HEENT: pupils equal. Sclera anicteric. Trachea midline. Cardiovascular: S1 S2 Respiratory: clear, no wheeze Abdomen: Soft, nt. No r/g/r. Extremities: Warm. LABS: Reviewed. IMAGING: Reviewed. MEDICATIONS: Reviewed. ASSESSMENT: 61 M Acute hypoxic resp failure tx for pna, nonifectious and perhpas more AIP Tx for severe sepsis PLAN: doing well. weaning O2 still. to floor today. see if going to need O2 with ambulation as he continues to recover. Ensure CXR continues to clear and outpt f/u prednisone as ordered can complete in a few days taper. abx to complete after today. Potential dispo next 24-48h Supportive and preventative care as ordered. VTE prophylaxis: lovenox Disposition: floor Code Status: Full Critical Care Time: 25min FAnthony Crawford DO
--- NOTE | 2017-03-01 13:17 | RAD ---
INDICATION: Pneumonia COMPARISON: Chest x-ray February 26, 2017 TECHNIQUE: PA and lateral dual-energy views were obtained. FINDINGS: Bones/Soft Tissues: There are no acute bony findings. Cardiomediastinal: The cardiomediastinal silhouette is normal. Lungs: There are bilateral alveolar infiltrates demonstrating improvement. Continued follow-up is warranted.. Pleura: There are no pleural effusions. Other: None IMPRESSION: BILATERAL INFILTRATES WITH IMPROVEMENT. SUGGEST CONTINUED FOLLOW-UP
[2017-03-01] MEDS: predniSONE TAB* 20 MG PO SCH (13:38)
[2017-03-01] MEDS: Enoxaparin(*) 40 MG/0.4 ML SYR SUBCUT SCH (13:38)
[2017-03-01] MEDS: Metoprolol Succinate XL TAB* 50 MG PO SCH (13:38)
[2017-03-01] MEDS ORDERED: Famotidine TAB* 20 MG PO SCH (18:00)
[2017-03-02] MEDS: DOXYcycline CAP(*) 100 MG PO SCH (05:15)
[2017-03-02 07:54] LABS: Hematocrit 30 % (42-52); Hemoglobin 10.2 g/dl (14.0-18.0); Mean Corpuscular HGB Conc 35 g/dl (31-36); Mean Corpuscular Hemoglobin 34 pg (27-31); Mean Corpuscular Volume 99 fL (80-94); Mean Platelet Volume 6 um3 (7.4-10.4); Red Blood Count 2.99 10^6/ul (4.0-5.4); Red Cell Distribution Width 14 % (10.5-15); White Blood Count 10.1 10^3/ul (3.5-10.8)
[2017-03-02 07:55] LABS: Add Diff/Slide Review? Slide Review Added; Comments Flag Yes
[2017-03-02 08:11] LABS: BUN/Creatinine Ratio 24.7 (8-20); Calcium 8.2 mg/dL (8.6-10.3); EGFR African American 140.5 (>60); EGFR Non-African American 109.2 (>60)
[2017-03-02] MEDS: Cefepime(*) 1 GM in NS 0.9% 50 ML* 50 ML IVPB SCH (09:30)
[2017-03-02] MEDS: predniSONE TAB* 20 MG PO SCH (09:38)
[2017-03-02 11:40] VITALS: BP 131/68
[2017-03-02] MEDS ORDERED: Influenza VAC *QUAD* 2017-18* 0.5 ML SYRINGE IM ONE ×2 (11:50→12:00)
[2017-03-02] MEDS ORDERED: Pneumococcal *Vac Polyvalent 0.5 ML VIAL IM ONE ×2 (11:51→12:00)
[2017-03-02] MEDS: Metoprolol Succinate XL TAB* 50 MG PO SCH (12:35)
--- NOTE | 2017-03-03 01:30 | DS ---
DISCHARGE SUMMARY: DATE OF ADMISSION: 02/23/17 DATE OF DISCHARGE: 03/02/17 ADMITTING PROVIDER: Nayan Palma MD ATTENDING PHYSICIAN: Zhou Hooker MD CHIEF COMPLAINT: Shortness of breath, dry cough, progressive to hypoxic respiratory failure. HISTORY OF PRESENT ILLNESS AND HOSPITAL COURSE: The patient is 61-year-old male with past medical history of hypertension, presented to [facility] on 02/18/17 with complaints of one week of chills, 3 to 4 days of nonproductive cough, then fever, nausea and vomiting. Denied abdominal pain. No palpitations , chest pain. No sick contacts. No diarrhea. Admitted to [place], found to have bilateral multifocal infiltrates, started on community acquired pneumonia treatment with ceftriaxone and azithromycin, initially on 2 L nasal cannula. The patient with increasing hypoxic respiratory failure up to 4, then 6 L, then 10. Antibiotics were changed to Levaquin. He was transferred to [facility] for further evaluation and admitted to the intensive care unit, antibiotics were changed to cefepime and vancomycin and additional doxycycline for atypical coverage and recent wilderness exposure. 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 The patient had sputum sample aspirated, which showed yeast, normal nate. Repeat chest x-ray on 03/01 showed bilateral infiltrates with improvement. Patient was stepped down from ICU on 03/01/17, was off any supplemental oxygen, afebrile, finished a course of antibiotics and steroids for potential AIP, will be discharged with 1 more day of 40 mg prednisone and 3 days of 20 mg prednisone. He was evaluated by Infectious Disease, Dr. Pedro Richey, who agreed with course of treatment. The patient to be discharged home. MEDICATIONS UPON DISCHARGE: 1. Metoprolol tartrate 50mg daily 2. Prednisone 20mg tabs. 1 more day 40mg then 3 days 20mg. DISCHARGE DIET: Unrestricted, unchanged. DISCHARGE ACTIVITY LEVEL: No restriction. FOLLOWUP: Please follow up with primary care provider Dr. Coello within 3 to 5 days of hospital discharge. He does not follow up with any other specialist for any other reason. TIME SPENT: 35 minutes. [id number]/[facility] #: [id number] [facility]
[2017-03-04] MEDS ORDERED: predniSONE TAB* 20 MG PO SCH (09:00)
== END 2017-03-02 13:45 | disposition home or self-care (01) | DRG 720 ==
LOC: ICU 11:26 → MED 03-01 12:39
PROVIDERS: ADMIT Internal Medicine Critical Care Medicine; ATTEND Internal Medicine
DX: A41.9 Sepsis, unspecified organism (principal); J18.9 Pneumonia, unspecified organism; J96.01 Acute respiratory failure with hypoxia; J80 Acute respiratory distress syndrome; J84.114 Acute interstitial pneumonitis; I10 Essential (primary) hypertension; R65.20 Severe sepsis without septic shock; Z80.1 Family history of malignant neoplasm of trachea, bronchus and lung; Z80.9 Family history of malignant neoplasm, unspecified; Z87.891 Personal history of nicotine dependence; Z23 Encounter for immunization
CPT/HCPCS: 36415; 71010; 71020; 80048; 80053; 80202; 81003; 81015; 83036; 84443; 85025; 85027; 85610; 85730; 87070; 87205; 87641; 90686; 90732; 93005; 94640; 94760; A9270-GY; J0692; J1650; J2930; J3370; J7512

== ENCOUNTER 2023-12-09 06:55 | Inpatient (IN) ==
[2023-12-09] MEDS ORDERED: Dexamethasone IV 4 MG/ML VIAL 1 ml VIAL ONE (07:23)
[2023-12-09] MEDS ORDERED: Famotidine IV 10 MG/ML 2 ml VIAL (20 mg) ONE (07:23)
[2023-12-09] MEDS: Buffered Lidocaine 1% SYRIN 1 ml INTRADERM ONE (07:45)
[2023-12-09] MEDS: Famotidine IV 10 MG/ML 2 ml VIAL (20 mg) IV ONE (07:45)
[2023-12-09] MEDS: Lactated Ringers 1000 ml BAG 1,000 ML IV SCH (07:45)
[2023-12-09] MEDS: Dexamethasone IV 4 MG/ML VIAL 1 ml VIAL IV SLOW PU ONE (07:50)
[2023-12-09] MEDS ORDERED: Methylene Blue 1% (ANTIDOTE) 10 MG/ML 10 ML SDV VIAL IVPB ONE (09:12)
[2023-12-09] MEDS ORDERED: Lidocaine 1% VIAL 10 MG/ML 30 ML VIAL ONE (09:30)
[2023-12-09] MEDS ORDERED: Lidocaine 1% w EPI 1:100,000 MDV 20 ML VIAL ONE (09:30)
[2023-12-09] MEDS ORDERED: Midazolam 2 mg/2 ml VIAL 1 mg/ml 2 ml VIAL (2 mg) ONE (10:06)
[2023-12-09] MEDS ORDERED: Lidocaine 2% PF 5 ML VIAL ONE (10:06)
[2023-12-09] MEDS ORDERED: Propofol 10 MG/ML 20 ML BTL ONE ×2 (10:06→10:31)
[2023-12-09] MEDS ORDERED: Succinylcholine 200 mg VIAL 20 mg/ml 10 ml VIAL (200 mg) ONE (10:06)
[2023-12-09] MEDS ORDERED: fentaNYL 100 mcg/2 ml 50 MCG/ML VIAL ONE ×4 (10:06→11:11)
[2023-12-09] MEDS ORDERED: Levalbuterol HFA INHALER MDI ONE (10:46)
[2023-12-09] MEDS ORDERED: Rocuronium 50 mg VIAL 10 mg/ml 5 ml VIAL (50 mg) ONE (11:10)
[2023-12-09] MEDS ORDERED: Phenylephrine 40 mcg/mL 10mL (400mcg) SYRINGE ONE (11:16)
[2023-12-09] MEDS ORDERED: HYDROmorphone 0.5 MG/0.5 ML SYRINGE ONE (11:43)
[2023-12-09] MEDS ORDERED: KETAMINE HCL 10 MG/ML 20 ml VIAL (200 MG) ONE (12:05)
[2023-12-09] MEDS ORDERED: Phenylephrine IV 10 MG/ML 1 ml VIAL ONE (12:47)
[2023-12-09] MEDS ORDERED: Ondansetron 4 mg VIAL 2 MG/ML 2 ml VIAL ONE (13:04)
[2023-12-09] MEDS ORDERED: Al Hydrox/Mg Hydrox/Simet LIQ 30 ML UDC PO PRN (13:58)
[2023-12-09] MEDS ORDERED: Polyethylene Glycol 3350 17 GM PACKET PO PRN (13:58)
[2023-12-09] MEDS ORDERED: Dextrose 50% Syringe 50 ml 25 GM/50 ML SYRINGE IV PUSH PRN (14:00)
[2023-12-09] MEDS ORDERED: Morphine 2 MG/ML SYRINGE IV PRN (14:01)
[2023-12-09] MEDS ORDERED: Naloxone 0.4 mg VIAL 0.4 mg/ml 1 ml VIAL IV PRN (14:28)
[2023-12-09] MEDS ORDERED: fentaNYL 100 mcg/2 ml 50 MCG/ML VIAL IV PRN (14:28)
[2023-12-09] MEDS ORDERED: Morphine 4 MG/ML VIAL (1 ml) IV PRN (14:28)
[2023-12-09 15:16] LABS: Rapid COVID-19 Molecular Undetected (Undetected)
[2023-12-09] MEDS ORDERED: HYDROcodone/Acetamin 10/325 TAB (NF) PO PRN (17:41)
[2023-12-09] MEDS ORDERED: HYDROcodone/ACETAMIN 5/325 mg TAB PO PRN (17:41)
[2023-12-09] MEDS: Latanoprost 0.005% 2.5 ml BTL BOTH EYES SCH (21:15)
[2023-12-10 05:57] LABS: ABS Basophils 0.1 10^3/uL (0.0-0.1); ABS Lymphocytes 3.4 10^3/uL (1.0-4.8); ABS Monocytes 0.2 10^3/uL (0.0-1.1); ABS Neutrophils 6.1 10^3/uL (1.5-7.6); ABS Nucleated RBC 0.01 10^3/ul; Hematocrit 42.7 % (38-53); Hemoglobin 14.9 g/dL (13.2-16.3); Lymphocyte % 34.2 %; Mean Corpuscular Hemoglobin 32.9 pg (27-33); Mean Platelet Volume 7.5 fL (7.5-11.2); Nucleated Red Blood Cells % 0.1 %/100WBC (0.0-0.8); Platelet Count 124 10^3/uL (150-450); Red Blood Count 4.54 10^6/uL (4.06-5.63); Red Cell Distribution Width 14.1 % (12-17); White Blood Count 9.9 10^3/uL (3.6-10.2)
[2023-12-10 06:35] LABS: Calcium 8.6 mg/dL (8.6-10.3); Potassium 4.3 mmol/L (3.5-5.0); eGFR CKD-EPI 82.5 (>60)
[2023-12-10 10:12] VITALS: BP 139/79
== END 2023-12-10 11:57 | disposition home or self-care (01) | DRG 142 ==
LOC: SSU 06:55 → OR 06:55 → OBSVTOIN 13:58
PROVIDERS: ADMIT Otolaryngology; ATTEND Family Medicine